=== PATIENT | female | born 1955 ===

== ENCOUNTER 2017-01-02 06:33 | Day surgery (SDC) | payer MEDICAID ==
[2017-01-02 06:52] VITALS: BMI 32.5
[2017-01-02] MEDS ORDERED: Midazolam 2 MG/2 ML VIAL ONE (08:07)
[2017-01-02] MEDS ORDERED: Propofol 10 mg/ml Inj (20 ML) ONE (08:07)
--- NOTE | 2017-01-02 08:09 | CP.SDSHP ---
Same Day Surgery H & P - History Proposed Procedure: EGD Pre-Op Diagnosis: dysphagia - Previous Medical/Surgical History Cardiac: Hypertension Comments: anxiety - Allergies Allergies: Allergies latex Allergy (Verified 01/02/17 06:52) RASH - Physical Exam General Appearance: NAD Vital Signs: Vital Signs 01/02/17 07:13 Temperature 98.4 F Pulse Rate 69 Respiratory 16 Rate Blood Pressure 144/69 O2 Sat by Pulse 98 Oximetry Mental Status: Alert & Oriented x3 Neuro: WNL Heart: WNL Lungs: WNL GI: WNL - {Optional Preform as Required} Abdomen: WNL - Impression Pt. Evaluated Today:Candidate for Anesthesia & Procedure: Yes - Date & Time Date: 01/02/17 Time: 08:09 Short Stay Discharge - Short Stay Discharge Admitting Diagnosis/Reason for Visit: DYSPHAGIA, UNSPECIFIED Disposition: HOME/ ROUTINE
[2017-01-02] MEDS ORDERED: Lactated Ringer's 1,000 ML IV SCH (08:30)
[2017-01-02 09:40] VITALS: TEMP 97.5; O2SAT 96
[2017-01-02 10:24] VITALS: BP 124/64; PULSE 69; RESP 13
== END 2017-01-02 10:10 | disposition home or self-care (01) ==
LOC: C.ENDO 06:33
PROVIDERS: ATTEND Internal Medicine Gastroenterology
DX: K21.0 Gastro-esophageal reflux disease with esophagitis (principal); K29.70 Gastritis, unspecified, without bleeding; R13.10 Dysphagia, unspecified
CPT/HCPCS: 43239; 88305; J2001; J2250; J2704; J7120

== ENCOUNTER 2017-02-27 07:22 | Day surgery (SDC) | payer MEDICAID ==
[2017-02-27] MEDS ORDERED: Propofol 10 mg/ml Inj (20 ML) ONE ×2 (08:59→09:10)
[2017-02-27 09:49] VITALS: BP 109/64; PULSE 76; RESP 14; TEMP 98; O2SAT 99
== END 2017-02-27 12:05 | disposition home or self-care (01) ==
LOC: C.ENDO 07:22
PROVIDERS: ATTEND Internal Medicine Gastroenterology
DX: Z12.11 Encounter for screening for malignant neoplasm of colon (principal); D12.2 Benign neoplasm of ascending colon; K57.30 Diverticulosis of large intestine without perforation or abscess without bleeding; K64.2 Third degree hemorrhoids
CPT/HCPCS: 45380; 88305; J2704

== ENCOUNTER 2018-12-01 06:28 | Day surgery (SDC) | payer MEDICARE ==
--- NOTE | 2018-12-01 08:24 | CP.SDSHP ---
Same Day Surgery H & P - History Proposed Procedure: EGD Pre-Op Diagnosis: SEE NOTES - Previous Medical/Surgical History Cardiac: Hypertension Pulmonary: Asthma Neuro: Other Misc: Other Pain: 4.Moderate Pain - Allergies Allergies: Allergies latex Allergy (Intermediate, Verified 12/01/18 07:14) RASH Penicillins Allergy (Intermediate, Verified 12/01/18 07:14) RASH - Physical Exam General Appearance: N Vital Signs: Vital Signs 12/01/18 07:23 Temperature 98 F Pulse Rate 80 Respiratory 20 Rate Blood Pressure 124/71 O2 Sat by Pulse 97 Oximetry Mental Status: Alert & Oriented x3 Neuro: WNL Heart: Other Lungs: Other GI: Other - {Optional Preform as Required} Breast: WNL Abdomen: Other Rectal: Other Integument: WNL : WNL Ortho: Other ENT: WNL - Impression Pt. Evaluated Today:Candidate for Anesthesia & Procedure: Yes - Date & Time Time: 08:24 Short Stay Discharge - Short Stay Discharge Admitting Diagnosis/Reason for Visit: DYSPEPSIA / DYSPHAGIA Disposition: HOME/ ROUTINE
[2018-12-01] MEDS ORDERED: Lactated Ringer's 1,000 ML IV ONE (08:31)
[2018-12-01] MEDS ORDERED: Propofol 10 mg/ml Inj (20 ML) ONE (08:32)
[2018-12-01] MEDS ORDERED: Midazolam 2 MG/2 ML VIAL ONE (08:32)
[2018-12-01 09:00] VITALS: TEMP 97.9
[2018-12-01 09:06] VITALS: O2SAT 99
[2018-12-01 09:52] VITALS: BP 121/67; PULSE 76; RESP 12
== END 2018-12-01 09:49 | disposition home or self-care (01) ==
LOC: C.ENDO 06:28
PROVIDERS: ATTEND Specialist
DX: K20.9 Esophagitis, unspecified (principal); K30 Functional dyspepsia; K29.70 Gastritis, unspecified, without bleeding
CPT/HCPCS: 43239; 82948; 88305; 88342; J2001; J2250; J2704; J7120

== ENCOUNTER 2019-01-27 12:01 | Emergency (ER) | payer MEDICARE ==
[2019-01-27 12:01] VITALS: BMI 32.5
[2019-01-27 12:25] VITALS: RESP 18
[2019-01-27 13:17] LABS: BASO % 0.7 % (0.0-2.0); EOS # 0.1 K/uL (0.0-0.7); EOS % 1.4 % (0.0-4.0); HEMOGLOBIN 15.2 g/dL (11.0-16.0); LYMPH # 1.6 K/uL (1.0-4.3); LYMPH % 25.2 % (20.0-40.0); MEAN CELL VOLUME 96.9 fL (81.0-99.0); MEAN CORPUSCULAR HEMOGLOBIN 33.2 pg (27.0-31.0); MEAN CORPUSCULAR HGB CONC 34.3 g/dL (33.0-37.0); MEAN PLATELET VOLUME 9.8 fL (7.2-11.7); MONO # 0.7 K/uL (0.0-0.8); MONO % 11.3 % (0.0-10.0); NEUT % 61.4 % (50.0-75.0); NRBC % 0.1 % (0.0-2.0); RBC 4.59 Mil/uL (3.80-5.20); RED CELL DISTRIBUTION WIDTH 13.3 % (11.5-14.5); WHITE BLOOD COUNT 6.5 K/uL (4.8-10.8)
[2019-01-27 13:23] LABS: SQUAMOUS EPITHIAL < 1 /hpf (0-5); URINE BILIRUBIN NEGATIVE (NEGATIVE); URINE BLOOD NEGATIVE (NEGATIVE); URINE CLARITY Clear (Clear); URINE COLOR Yellow (YELLOW); URINE GLUCOSE (UA) NORMAL (Normal); URINE LEUKOCYTE ESTERASE NEG Leu/uL (Negative); URINE PROTEIN NEGATIVE (NEGATIVE); URINE UROBILINOGEN NORMAL mg/dL (0.2-1.0)
[2019-01-27 13:33] LABS: ALB/GLOB RATIO 1.5 (1.0-2.1); ALBUMIN 4.7 g/dL (3.5-5.0); ALT/SGPT 40 U/L (9-52); AST/SGOT 46 U/L (14-36); BLOOD UREA NITROGEN 15 mg/dL (7-17); CALCIUM 9.8 mg/dl (8.6-10.4); GFR NON-AFRICAN AMERICAN > 60; LIPASE 41 U/L (23-300)
--- NOTE | 2019-01-27 14:16 | C.PDOC ---
History Of Present Illness Patient is a 63yo F with PMH of HTN, hypoglycemia, diverticulosis/diverticulitis comes to the ED today after an episode of abdominal pain and bloody BM this morning. A bandlike abdominal pain woke her up out of sleep at 3am this AM and was relieved by defecation where she noticed a streak of dark red on the stool that did not stain the toilet bowl water. She has been eating less fiber than usual and has episodes of LLQ pain that last less than 30 min since her poor eating started. She admits to eating beets two nights ago. Admits to shortness of breath when the abdominal pain is at its worst. Denies chest pain, palpitations, weakness, dizziness, headache. Patient is follow by Dr. Brown for her GI issues. Her most recent EGD was in 11/2018 which showed esophagitis. Her most recent colonoscopy was 02/2017 and had a polyp removed from the terminal ileum. She is to follow up with a repeat colonoscopy this year. <Diane Drummond - Last Filed: 01/27/19 15:06> Patient seen and examined. History as above. Patient comfortable and abdomen soft and nontender. <Sandy Estevez - Last Filed: 01/27/19 15:28> History Per: Patient Onset/Duration Of Symptoms: Hrs Current Symptoms Are (Timing): Gone Pain Scale Rating Of: 3 Location Of Pain/Discomfort: LLQ Quality Of Discomfort: "Pain" Associated Symptoms: denies: Fever, Chills, Nausea, Vomiting, Diarrhea, Constipation Exacerbating Factors: denies: None Alleviating Factors: denies: None Last Bowel Movement: Today <Diane Drummond - Last Filed: 01/27/19 15:06> <Sandy Estevez - Last Filed: 01/27/19 15:28> Chief Complaint (Nursing): GI Problem Past Medical History Reviewed: Historical Data, Nursing Documentation, Vital Signs Vital Signs: Last Vital Signs Temp 98.1 F 01/27/19 12:19 Pulse 84 01/27/19 12:19 Resp 18 01/27/19 12:19 BP 137/82 01/27/19 12:19 Pulse Ox 95 01/27/19 12:19 - Medical History PMH: Anxiety, Asthma, Bronchitis, Colonic Polyps, Depression, Diverticulitis, Gastritis, HTN, Hypercholesterolemia, Hypothyroidism, Sleep Apnea (DOES NOT USE HER CPAP) Denies: COPD, Emphysema, Fractures, Chronic Kidney Disease, TIA Surgical History: Appendectomy, Endoscopy Family History: States: Unknown Family Hx - Social History Hx Alcohol Use: No Hx Substance Use: No - Immunization History Hx Tetanus Toxoid Vaccination: No Hx Influenza Vaccination: No Hx Pneumococcal Vaccination: (unk) <Meryl Drummonddenise Jay - Last Filed: 01/27/19 15:06> Vital Signs: Last Vital Signs Temp 98.1 F 01/27/19 12:19 Pulse 84 01/27/19 12:19 Resp 18 01/27/19 12:19 BP 137/82 01/27/19 12:19 Pulse Ox 95 01/27/19 15:09 <Sandy Estevez - Last Filed: 01/27/19 15:28> Review Of Systems Constitutional: Positive for: Sweats. Negative for: Fever, Chills, Weakness Cardiovascular: Negative for: Chest Pain, Palpitations, Edema, Light Headedness Respiratory: Positive for: Shortness of Breath, Wheezing. Negative for: Cough, Pleuritic Pain, Sputum Gastrointestinal: Positive for: Abdominal Pain, Hematochezia. Negative for: Nausea, Vomiting, Diarrhea, Constipation, Melena Genitourinary: Negative for: Dysuria Musculoskeletal: Negative for: Neck Pain, Shoulder Pain, Arm Pain, Back Pain, Hand Pain, Leg Pain, Foot Pain Skin: Negative for: Rash, Bruising Neurological: Negative for: Weakness, Numbness, Headache Psych: Negative for: Anxiety, Depression <Meryl Drummonddenise Jay - Last Filed: 01/27/19 15:06> Physical Exam - Physical Exam Appears: Well, No Acute Distress Skin: Normal Color, Warm, Dry Head: Atraumatic, Normacephalic Eye(s): bilateral: PERRL (normal accomadation), EOMI Oral Mucosa: Moist Chest: Symmetrical, No Deformity, No Tenderness Cardiovascular: Rhythm Regular, No Edema, No Murmur, No JVD Respiratory: Normal Breath Sounds, No Accessory Muscle Use, Rales (LLL), No Wheezing Gastrointestinal/Abdominal: Normal Exam (no erythema, edema, rash), Bowel Sounds, Soft, No Tenderness, No Distention, No Guarding Back: Normal Inspection, No CVA Tenderness Extremity: Normal ROM, No Tenderness, No Pedal Edema, Capillary Refill (< 2sec) Extremity: Bilateral: Atraumatic, No Pedal Edema Neurological/Psych: Oriented x3, Normal Speech, Normal Cognition <Diane Drummond - Last Filed: 01/27/19 15:06> ED Course And Treatment - Laboratory Results Result Diagrams: 01/27/19 13:14 01/27/19 13:14 Lab Results: Total Bilirubin 0.7 mg/dL (0.2-1.3) 01/27/19 13:14 AST 46 U/L (14-36) H 01/27/19 13:14 ALT 40 U/L (9-52) 01/27/19 13:14 Alkaline Phosphatase 116 U/L (38-126) 01/27/19 13:14 Total Protein 7.9 g/dL (6.3-8.3) 01/27/19 13:14 Albumin 4.7 g/dL (3.5-5.0) 01/27/19 13:14 Globulin 3.1 gm/dL (2.2-3.9) 01/27/19 13:14 Albumin/Globulin Ratio 1.5 (1.0-2.1) 01/27/19 13:14 Lipase 41 U/L (23-300) 01/27/19 13:14 Urine Color Yellow (YELLOW) 01/27/19 13:14 Urine Clarity Clear (Clear) 01/27/19 13:14 Urine pH 6.0 (5.0-8.0) 01/27/19 13:14 Ur Specific Compton 1.003 (1.003-1.030) 01/27/19 13:14 Urine Protein Negative mg/dL (NEGATIVE) 01/27/19 13:14 Urine Glucose (UA) Normal mg/dL (Normal) 01/27/19 13:14 Urine Ketones Negative mg/dL (NEGATIVE) 01/27/19 13:14 Urine Blood Negative (NEGATIVE) 01/27/19 13:14 Urine Nitrate Negative (NEGATIVE) 01/27/19 13:14 Urine Bilirubin Negative (NEGATIVE) 01/27/19 13:14 Urine Urobilinogen Normal mg/dL (0.2-1.0) 01/27/19 13:14 Ur Leukocyte Esterase Neg Marci/uL (Negative) 01/27/19 13:14 Urine WBC (Auto) 1 /hpf (0-5) 01/27/19 13:14 Ur Squamous Epith Cells < 1 /hpf (0-5) 01/27/19 13:14 O2 Sat by Pulse Oximetry: 95 <Diane Drummond Y - Last Filed: 01/27/19 15:06> - Laboratory Results Result Diagrams: 01/27/19 13:14 01/27/19 13:14 Lab Results: Total Bilirubin 0.7 mg/dL (0.2-1.3) 01/27/19 13:14 AST 46 U/L (14-36) H 01/27/19 13:14 ALT 40 U/L (9-52) 01/27/19 13:14 Alkaline Phosphatase 116 U/L (38-126) 01/27/19 13:14 Total Protein 7.9 g/dL (6.3-8.3) 01/27/19 13:14 Albumin 4.7 g/dL (3.5-5.0) 01/27/19 13:14 Globulin 3.1 gm/dL (2.2-3.9) 01/27/19 13:14 Albumin/Globulin Ratio 1.5 (1.0-2.1) 01/27/19 13:14 Lipase 41 U/L (23-300) 01/27/19 13:14 Urine Color Yellow (YELLOW) 01/27/19 13:14 Urine Clarity Clear (Clear) 01/27/19 13:14 Urine pH 6.0 (5.0-8.0) 01/27/19 13:14 Ur Specific Compton 1.003 (1.003-1.030) 01/27/19 13:14 Urine Protein Negative mg/dL (NEGATIVE) 01/27/19 13:14 Urine Glucose (UA) Normal mg/dL (Normal) 01/27/19 13:14 Urine Ketones Negative mg/dL (NEGATIVE) 01/27/19 13:14 Urine Blood Negative (NEGATIVE) 01/27/19 13:14 Urine Nitrate Negative (NEGATIVE) 01/27/19 13:14 Urine Bilirubin Negative (NEGATIVE) 01/27/19 13:14 Urine Urobilinogen Normal mg/dL (0.2-1.0) 01/27/19 13:14 Ur Leukocyte Esterase Neg Marci/uL (Negative) 01/27/19 13:14 Urine WBC (Auto) 1 /hpf (0-5) 01/27/19 13:14 Ur Squamous Epith Cells < 1 /hpf (0-5) 01/27/19 13:14 <Sandy Estevez - Last Filed: 01/27/19 15:28> Medical Decision Making Medical Decision Making: - labs - UA - CXR Patient is seeing Dr. Brown for her recurrent diverticulosis/diverticulitis and is to see him for repeat colonoscopy this year. She can return to him for her scheduled colonoscopy. She needs to return to eating a high fiber diet and hydrating enough, especially as the weather turns warmer. Educated on certain foods turning her BM red. <Diane Drummond - Last Filed: 01/27/19 15:06> Disposition - Disposition Disposition Time: 15:07 <Diane Drummond - Last Filed: 01/27/19 15:06> Counseled Patient/Family Regarding: Studies Performed, Diagnosis, Need For Followup <Sandy Estevez - Last Filed: 01/27/19 15:28> - Disposition Referrals: Nacho Brown [Staff Provider] - Disposition: HOME/ ROUTINE Condition: GOOD Instructions: High Fiber Diet, Diverticulosis (DC) Forms: [place] (Polish) - Clinical Impression Clinical Impression: Diverticulosis of colon without diverticulitis - PA / [employer] / Resident Statement MD/DO has reviewed & agrees with the documentation as recorded. MD/DO has examined the patient and agrees with the treatment plan. <Diane Drummond - Last Filed: 01/27/19 15:06>
--- NOTE | 2019-01-27 14:48 | RAD ---
Date of service: 01/27/2019 HISTORY: rales on exam, ED COMPARISON: No prior. TECHNIQUE: 1 view obtained. FINDINGS: LUNGS: No active pulmonary disease. PLEURA: No significant pleural effusion identified, no pneumothorax apparent. CARDIOVASCULAR: No aortic atherosclerotic calcification present. Normal cardiac size. No pulmonary vascular congestion. OSSEOUS STRUCTURES: No significant abnormalities. VISUALIZED UPPER ABDOMEN: Normal. OTHER FINDINGS: None. IMPRESSION: No active disease.
[2019-01-27 15:37] VITALS: BP 143/81; PULSE 82; TEMP 98.7; O2SAT 97
== END 2019-01-27 15:38 | disposition home or self-care (01) ==
LOC: C.ER 12:01
DX: K57.30 Diverticulosis of large intestine without perforation or abscess without bleeding (principal)